=== PATIENT | male | born 1960 | race Caucasian/White ===

== ENCOUNTER 2023-09-18 08:14 | Outpatient (CLI) | payer BC, SELFPAY | END 2023-09-18 08:15 | disposition home or self-care (01) | LOC: NFLDREF 09-22 13:06 | PROVIDERS: PCP Family Medicine; Referring Provider Family Medicine; Visit Provider Family Medicine | DX: Z00.00 Encounter for general adult medical examination without abnormal findings (principal); I25.10 Atherosclerotic heart disease of native coronary artery without angina pectoris; Z12.5 Encounter for screening for malignant neoplasm of prostate; Z13.6 Encounter for screening for cardiovascular disorders | CPT/HCPCS: 80053; 80061; G0103 ==

== ENCOUNTER 2023-10-09 14:59 | Outpatient (CLI) | payer BC, SELFPAY ==
[2023-10-09 15:45] VITALS: BP 170/85; PULSE 64; RESP 18
--- NOTE | 2023-10-09 15:51 | W.PM.STED ---
Stress Test Note Date Date of test: 10/09/23 Providers Primary care provider: Oliver Martínez Stress test physician: Abhi Vega Stress Test Note Stress test ordered: Stress Echo Indication for test: Left arm pain, anginal equivalent Results discussion: Patient is a very nice gentleman who presents here for the above ordered test. After review of the cardiac stress medical history form, he does have a history of a previous coronary artery bypass grafting done times 4. After discussion the risks benefits and side effects he would like to proceed. Pretest EKG shows normal sinus rhythm, ventricular rate is 57 blood pressure 131/76. No acute ST wave changes are noted. Following standard [facility] protocol he is exercised for a total time of 13 minutes, achieved a metabolic equivalent of 13.3 Mets with a maximum heart rate of 136, maximum blood pressure was 198/81 test is terminated because of fulfillment of protocol, he had no chest pain shortness of breath or any anginal equivalent symptoms, review of the tracing shows no appreciable ST wave changes, suggestive of ischemia, he recovered normally. With a high workload achieved. Conditioning was felt to be excellent Impression: Negative electrographic portion of stress echo Follow up suggested: Await echo read by Cardiology, clinical correlation with this will be needed, patient recovered normally left this testing facility in excellent condition. There were no complications.
== END 2023-10-09 15:00 | disposition home or self-care (01) ==
LOC: STRESS 14:59
PROVIDERS: PCP Family Medicine; Visit Provider Family Medicine
DX: I25.10 Atherosclerotic heart disease of native coronary artery without angina pectoris (principal); M79.602 Pain in left arm
CPT/HCPCS: 93016; 93325; 93351